=== PATIENT | female | born 1985 | race Caucasian/White ===

== ENCOUNTER → 2017-08-21 | Outpatient (CLI) | payer OTHER ==
[~2017-08-21] MED LIST: FEXO180T81 PO; FLUO20CA16 PO; FLUT12AE2 IH; GADOBUTROL 7.5 MMOL/7.5 ML VIAL IV ONE; NORG1TAB PO; PROAIR HFA8.5 GM INH
--- NOTE | 2017-08-21 11:31 | KCIC ---
MRI Brain with and without contrast History: Intermittent numbness in the upper and lower extremities Technique: Multiplanar, multi sequential pre and postcontrast MR imaging was performed of the brain. Contrast: 6 cc Gadavist Comparison: None Findings: There is no evidence of recent infarct or cytotoxic edema. The ventricles, sulci, and cisterns are within normal limits in size and configuration. There is no significant midline shift, intraaxial mass effect, or focal abnormal extra-axial fluid collection. There are a few scattered small foci of decreased signal on gradient echo sequence of the left parietal and right frontal lobes. These are not associated with other mass effect or signal change. There is no nodular parenchymal or leptomeningeal enhancement. There is preservation of the major intracranial flow-voids at the skull base. The cerebellar tonsils are normal in location. There is no significant abnormality of the pineal gland or pituitary gland. Paranasal sinuses are overall aerated. There is patchy mild fluid and thickening of the mastoid air cells bilaterally. There is mild maxillary sinus mucosal thickening, also mild patchy bilateral ethmoid air cell mucosal thickening. There are mucous retention cysts of the maxillary sinuses with slightly complex signal features. There is preserved marrow signal of the clivus. Impression: 1. 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 2. There is paranasal sinus mucosal thickening as stated, somewhat complex mucous retention cysts of the maxillary sinuses bilaterally. There is some patchy fluid and thickening of the mastoid air cells bilaterally. Electronically signed by: Nilay Ray MD (08/21/2017 11:27 AM) [id number]
== END | disposition home or self-care (01) ==
LOC: KCIC MRI 09:50
PROVIDERS: ATTEND Family Medicine
DX: J34.1 Cyst and mucocele of nose and nasal sinus (principal); R20.0 Anesthesia of skin
CPT/HCPCS: 70553; A9585